=== PATIENT | male | born 1940 | race Caucasian/White ===

== ENCOUNTER 2017-06-04 21:52 | Observation (INO) | payer OTHER, BC ==
[2017-06-04] MEDS ORDERED: NS 1,000 ML IV ONE (21:58)
[2017-06-04] MEDS ORDERED: ASPIRIN 81 MG CHEWABLE TAB PO ONE (21:58)
--- NOTE | 2017-06-04 22:00 | EDPHY ---
H & P HPI/ROS: HPI CHIEF COMPLAINT: Chest pain HISTORY OF PRESENT ILLNESS: This patient very pleasant 76-year-old male he is from out of town he resides in [place] he is fluent to [place] today around noon. He ate at 4:00 p.m.. He presents emergency room for 30 minutes of chest discomfort. He describes it as substernal dull ache. Waxing and waning. Stuttering in symptoms. He states that it comes and goes very brief periods. No reflux symptoms. No shortness of breath or pleuritic pain. He endorses dry mouth and diaphoresis with this. Since arriving to the emergency room by EMS it is resolved. It started half an hour ago. Of note this patient does have significant cardiac disease history including 3 stents to his LAD 1 in his circumflex 9 years ago, additionally he has an AICD for V-tach. On Coumadin for AFib Past Medical History: Coronary artery disease, AFib, V-tach Past Surgical History: Left chest AICD Social History: Denies daily use drugs alcohol tobacco. Family History: Noncontributory ROS REVIEW OF SYSTEMS: A comprehensive 10 point review of systems is otherwise negative aside from elements mentioned in the history of present illness. Exam Constitutional appears well nontoxic, triage nursing summary reviewed, vital signs reviewed, awake/alert. Eyes normal conjunctivae and sclera, EOMI, PERRLA. HENT normal inspection, atraumatic, moist mucus membranes, no epistaxis, neck supple/ no meningismus, no raccoon eyes. Respiratory clear to auscultation bilaterally, normal breath sounds, no respiratory distress, no wheezing. Cardiovascular rate normal, regular rhythm, no murmur, no edema, distal pulses normal. Gastrointestinal soft, non-tender, no rebound, no guarding, normal bowel sounds, no distension, no pulsatile mass. Genitourinary no CVA tenderness. Musculoskeletal no midline vertebral tenderness, full range of motion, no calf swelling, no tenderness of extremities, no meningismus, good pulses, neurovascularly intact. Skin pink, warm, & dry, no rash, skin atraumatic. Neurologic awake, alert and oriented x 3, AAOx3, moves all 4 extremities equally, motor intact, sensory intact, CN II-XII intact, normal cerebellar, normal vision, normal speech. Psychiatric normal mood/affect. Heme/Lymph/Immune no lymphadenopathy. Differential diagnosis includes but is not limited to: ACS, atypical chest pain , pneumothorax, pneumonia, pulmonary embolism, aortic dissection, congestive heart failure, tumor, musculoskeletal pain, esophageal pain, GERD, peptic ulcer disease, pancreatitis Medical Decision Making: Plan for this patient full cardiac sonographer, IV establishment, obtain EKG, troponin, chest x-ray, electrolytes, blood work. Full-dose aspirin. He is chest pain-free at this time but if he develops chest pain will obtain another EKG as well as dose with nitroglycerin. Re-evaluation: EKG interpretation by me on record in [facility] system. Impression time of EKG 2157, this is sinus rhythm rate of 88, left axis deviation present. Q- waves present V1 V2 V3. No ST elevation. T-wave inversion lateral leads. ED x-ray chest reviewed. Cardiomegaly. No failure. 2310: The patient is chest pain-free. No acute distress. Comfortably. Troponin negative D-dimer negative. I have asked the hospitalist service to admit this patient for chest pain cardiac rule out. He is chest pain-free. His workup here in emergency room is been unremarkable. He agrees to stay. His risk factors include underlying coronary artery disease with multiple stents, VT cardiac arrest, AICD. Age. Dr. Jacobsen agrees to admit this patient. Source: Patient, EMS Constitutional: Initial Vital Signs Temperature (C) 36.4 C 06/04/17 21:52 Heart Rate 90 06/04/17 21:52 Respiratory Rate 15 06/04/17 21:52 Blood Pressure 148/89 H 06/04/17 21:52 O2 Sat (%) 95 06/04/17 21:52 O2 Delivery Mode Room Air Allergies/Adverse Reactions: No Known Allergies Allergy (Verified 06/04/17 21:59) Home Medications: Medication Instructions Recorded Amiodarone HCl 200 mg PO Q2D 06/04/17 Aspirin [Aspirin 81mg (*)] 81 mg PO DAILY 06/04/17 Atorvastatin Calcium [Lipitor 40 40 mg PO HS 06/04/17 mg (*)] Ezetimibe [Zetia 10 MG (*)] 10 mg PO DAILY 06/04/17 Levothyroxine [Synthroid 112 mcg 112 mcg PO DAILY06 06/04/17 (*)] Metoprolol Succinate Xr [Toprol Xl 25 mg PO DAILY 06/04/17 25 mg (*)] Nitroglycerin [Nitrostat 0.4 mg 0.4 mg SL Q5M PRN 06/04/17 (*)] Spironolactone [Aldactone 25 MG 25 mg PO DAILY 06/04/17 (*)] Warfarin Sodium [Coumadin 3MG (*)] 3 mg PO SUTUWETHSA@16 06/04/17 Multivitamins [Multivitamin (*)] 1 each PO DAILY 06/05/17 Pantoprazole Sodium [Protonix 40mg 40 mg PO DAILY #30 tab 06/05/17 (*)] Tamsulosin HCl [Flomax 0.4 MG (*)] 0.4 mg PO DAILY 06/05/17 Warfarin Sodium [Coumadin 2MG (*)] 2 mg PO MOFR@16 06/05/17 Medical Decision Making - Data Points Laboratory Results: Laboratory Results 06/04/17 21:58 06/04/17 21:58 Medications Given: Discontinued Medications Aspirin (Aspirin) 324 mg PO EDNOW ONE Stop: 06/04/17 21:59 Last Admin: 06/04/17 22:18 Dose: Not Given Ezetimibe (Zetia) 10 mg PO DAILY KATERIN Stop: 12/02/17 09:14 Last Admin: 06/05/17 09:56 Dose: 10 mg Sodium Chloride (Ns) 1,000 mls @ 0 mls/hr IV EDNOW ONE; Wide Open PRN Reason: Protocol Stop: 06/04/17 21:59 Last Admin: 06/04/17 22:26 Dose: 1,000 mls Sodium Chloride (Ns) 1,000 mls @ 75 mls/hr IV CONT KATERIN Stop: 06/05/17 06:14 Last Admin: 06/05/17 01:44 Dose: 1,000 mls Levothyroxine Sodium (Synthroid) 112 mcg PO DAILY06 KATERIN Stop: 12/02/17 09:14 Last Admin: 06/05/17 09:56 Dose: 112 mcg Metoprolol Succinate (Toprol Xl) 25 mg PO DAILY KATERIN Stop: 12/02/17 09:14 Last Admin: 06/05/17 09:56 Dose: 25 mg Pantoprazole Sodium (Protonix) 40 mg PO ONCE ONE Stop: 06/05/17 09:29 Last Admin: 06/05/17 09:56 Dose: 40 mg Spironolactone (Aldactone) 25 mg PO DAILY [facility] Stop: 12/02/17 09:14 Last Admin: 06/05/17 09:57 Dose: 25 mg Tamsulosin HCl (Flomax) 0.4 mg PO DAILY [facility] Stop: 12/02/17 09:14 Last Admin: 06/05/17 09:57 Dose: 0.4 mg Departure - Departure Disposition: [facility] Inpatient Acute Clinical Impression: Chest pain Qualifiers: Chest pain type: unspecified Qualified Code(s): R07.9 - Chest pain, unspecified Condition: Fair
--- NOTE | 2017-06-04 22:01 | CPEKG ---
Heart Rate: 88 RR Interval: 682 P-R Interval: 168 QRSD Interval: 88 QT Interval: 392 QTC Interval: 475 P [place]: 33 QRS [place]: -31 T Wave [place]: 102 EKG Severity - ABNORMAL ECG - EKG Impression: SINUS RHYTHM EKG Impression: LEFT AXIS DEVIATION EKG Impression: CONSIDER ANTEROSEPTAL INFARCT Electronically Signed By: Juan David Foster 05-Jun-2017 06:45:14
[2017-06-04 22:17] LABS: % IMMATURE GRANULYOCYTES 0.2 % (0.0-1.1); ABSOLUTE IMMATURE GRANULOCYTES 0.02 10^3/uL (0.00-0.10); ADD DIFF? NO; ADD MORPH? NO; ADD SCAN? NO; ATYPICAL LYMPHOCYTE FLAG 10 (0-99); FRAGMENT RBC FLAG 0 (0-99); HEMATOCRIT 34.6 % (40.0-51.0); HEMOGLOBIN 11.9 g/dL (13.7-17.5); LEFT SHIFT FLG 0 (0-99); LIPEMIA HEMOLYSIS FLAG 90 (0-99); MEAN CELL HEMOGLOBIN 33.4 pg (27.9-34.1); MEAN CELL HEMOGLOBIN CONCENTR. 34.4 g/dL (32.4-36.7); MEAN CELL VOLUME 97.2 fL (81.5-99.8); MEAN PLATELET VOLUME 10.5 fL (8.7-11.7); PLATELET CLUMPS FLAG 0 (0-99); PLATELET COUNT 198 10^3/uL (150-400); RED BLOOD CELL COUNT 3.56 10^6/uL (4.40-6.38)
[2017-06-04 22:27] LABS: ALANINE AMINOTRANSFERASE 37 IU/L (21-72); ALBUMIN 3.9 g/dL (3.5-5.0); ALKALINE PHOSPHATASE 77 IU/L (38-126); ANION GAP 10 mEq/L (8-16); APTT 34.2 SEC (23.0-38.0); ASPARTATE AMINOTRANSFERASE 31 IU/L (17-59); BILIRUBIN,TOTAL 0.9 mg/dL (0.1-1.4); BILIRUBIN-CONJUGATED 0.2 mg/dL (0.0-0.5); BILIRUBIN-UNCONJUGATED 0.7 mg/dL (0.0-1.1); CALCIUM 9.6 mg/dL (8.5-10.4); CARBON DIOXIDE 23 mEq/l (22-31); CHLORIDE 104 mEq/L (97-110); CREATININE 1.6 mg/dL (0.7-1.3); GLOMERULAR FILTRATION RATE 42; GLUCOSE 101 mg/dL (70-100); INR 2.23 (0.83-1.16); MAGNESIUM 1.9 mg/dL (1.6-2.3); POTASSIUM 4.1 mEq/L (3.5-5.2); PROTIME(PATIENT) 24.9 SEC (12.0-15.0); SODIUM 137 mEq/L (134-144); TOTAL PROTEIN 6.8 g/dL (6.3-8.2)
[2017-06-04 22:39] LABS: CREATINE KINASE-MB FRACTION 1.64 ng/mL (0.00-3.19); TROPONIN I < 0.012 ng/mL (0.000-0.034)
[2017-06-05] MEDS ORDERED: ACETAMINOPHEN 325 MG TAB PO PRN (01:03)
[2017-06-05] MEDS ORDERED: ONDANSETRON DISINTEGRATING 4 MG TAB PO PRN (01:03)
[2017-06-05] MEDS ORDERED: ONDANSETRON 4 MG/2 ML VIAL IVP PRN (01:03)
[2017-06-05] MEDS ORDERED: NS 1,000 ML IV SCH (01:15)
[2017-06-05 01:19] VITALS: RESP 16; TEMP 98.1
[2017-06-05] MEDS ORDERED: CALCIUM CARBONATE 500 MG CHEWABLE TAB PO PRN (02:00)
--- NOTE | 2017-06-05 03:14 | GHP ---
[f rep st] HISTORY AND PHYSICAL DATE OF ADMISSION: 06/05/2017 CHIEF COMPLAINT: Chest discomfort. HISTORY OF PRESENT ILLNESS: A 76-year-old male visiting from [place] with his , with a history of coronary disease status post stents, VFib, hypertension , presenting with chest discomfort. They flew in today from [place] to visit his son. They had an early dinner at 4, in which he had 1 beer. He was in bed this evening and developed a substernal, dull spasm that occurred every 15 seconds. He a fullness in his abdomen and the need to belch. He has a history of GERD and used to be on acid blockers, but no longer. These episodes have resolved by the time of my interview. He denies any associated radiation numbness, tingling, nausea, vomiting, or shortness of breath. He walks daily 30 minutes without chest pain or shortness of breath. 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 He had a treadmill stress test within the year, that was normal. He said his EF is 35% to 40%. No fevers, chills, or sweats. No nausea, vomiting, or diarrhea. REVIEW OF SYSTEMS: I completed a 10-point review of systems, negative except as noted in HPI. PAST MEDICAL HISTORY: 1. Coronary artery disease, 2 stents to LAD, 1 to the circumflex in 2007, history of ventricular fibrillation status post AICD. 2. VT. 3. Hypertension. 4. Hyperlipidemia. 5. Systolic heart failure with an EF of 35% to 40%, per his report. 6. Atrial fibrillation. PAST SURGICAL HISTORY: None. FAMILY HISTORY: Mother and father with CHF. HOME MEDICATIONS: Zetia, Synthroid, spironolactone, PPI, nitroglycerin, metoprolol, Coumadin, atorvastatin, aspirin, amiodarone. SOCIAL HISTORY: Has a drink with dinner. No tobacco. Smoked for a total of 4 years. No drugs. Here visiting son. ALLERGIES: No known drug allergies. PHYSICAL EXAMINATION: VITAL SIGNS: Temperature 36.7, blood pressure 147/90, heart rate 70s, respirations 16, 96% on room air. GENERAL: Well-appearing male , sitting up in bed, no acute distress. HEENT: PERRLA. EOMI. Oropharynx clear. CV: Regular rate and rhythm. No murmurs, gallops, rubs. No reproducible midsternal chest pain. No lower extremity edema. LUNGS: Clear. GI: Soft, nontender, nondistended. : No suprapubic tenderness. MUSCULOSKELETAL: 5/5 upper and lower extremity strength. NEUROLOGIC: 2 through 12 intact. PSYCHIATRIC: Alert and oriented x3. Very pleasant. LABORATORY DATA: WBC 9, hemoglobin 11, hematocrit 34, platelets 198. INR is 2.2, PT is 24. D-dimer 0.3. Sodium 137, potassium 4.1, chloride 104, anion gap 10, creatinine is 1.6, unclear baseline. BNP is 584. Lipase 134. LFTs within normal. EKG, personally reviewed by me: Anterior Q waves, inferior Q waves. Chest x-ray, personally reviewed by me: Cardiac enlargement. No overt pulmonary edema. ASSESSMENT AND PLAN: 1. Chest discomfort: Differential includes gastroesophageal reflux disease, acute coronary syndrome versus, pulmonary embolism, musculoskeletal. D-dimer negative. Initial troponin and EKG negative for acute ischemia. There are inferior, anterior Q waves. Patient is pain-free at this time. Will monitor on telemetry and repeat troponin EKG. He is followed closely by a underground supervisor in [place]. Per his report, had a normal stress test within 1 year. He also states having an echocardiogram the past month that has been stable from prior. If patient's troponin and EKG negative, it is reasonable to follow up with his underground supervisor when he returns home. 2. Acute kidney injury. Creatinine 1.6. Unclear baseline. Will gently hydrate with history of heart failure. 3. Coronary artery disease, status post stents. 4. Hyperlipidemia. Statin. 5. Coronary artery disease. Continue aspirin, statin, beta jg. 6. Compensated heart failure. Continue beta jg, diuretics. 7. INR is at goal. Continue amiodarone and beta jg. 8. Diet: Cardiac. 9. Deep vein thrombosis prophylaxis. On Coumadin. DISPOSITION: Patient warrants observation admission given acute chest pressure concerning for possible ACS, requiring telemetry and serial troponins. /[id number]/MODL MTDD
[2017-06-05 04:28] VITALS: O2SAT 95
[2017-06-05 04:42] LABS: ANION GAP 10 mEq/L (8-16); CALCIUM 8.6 mg/dL (8.5-10.4); CARBON DIOXIDE 21 mEq/l (22-31); CHLORIDE 109 mEq/L (97-110); CREATININE 1.4 mg/dL (0.7-1.3); GLOMERULAR FILTRATION RATE 49; GLUCOSE 92 mg/dL (70-100); POTASSIUM 4.3 mEq/L (3.5-5.2); SODIUM 140 mEq/L (134-144)
[2017-06-05 04:45] LABS: INR 2.48 (0.83-1.16); PROTIME(PATIENT) 27.1 SEC (12.0-15.0)
[2017-06-05 05:26] LABS: TROPONIN I < 0.012 ng/mL (0.000-0.034)
[2017-06-05] MEDS ORDERED: ENOXAPARIN 40 MG/0.4 ML SYR SC SCH (09:00)
[2017-06-05] MEDS ORDERED: EZETIMIBE 10 MG TAB PO SCH (09:15)
[2017-06-05] MEDS ORDERED: METOPROLOL SUCCINATE XR 25 MG TAB PO SCH (09:15)
[2017-06-05] MEDS ORDERED: SPIRONOLACTONE 25 MG TAB PO SCH (09:15)
[2017-06-05] MEDS ORDERED: LEVOTHYROXINE 112 MCG TAB PO SCH (09:15)
[2017-06-05] MEDS ORDERED: TAMSULOSIN HCL 0.4 MG CAP PO SCH (09:15)
[2017-06-05] MEDS ORDERED: PANTOPRAZOLE SODIUM 40 MG TAB PO ONE (09:28)
[2017-06-05 09:57] VITALS: BP 114/78; PULSE 79
--- NOTE | 2017-06-05 10:54 | ASDISCHSUM ---
Discharge Information Plan Status:Home with No Needs Medically Cleared to Leave:06/05/2017 Discharge Date:06/05/2017 10:50 AM CM D/C Disposition:Home, Routine, Self-Care ADT D/C Disposition:Home, Routine, Self-Care Projected Discharge Date:06/05/2017 12:00 AM Transportation at D/C: Discharge Delay Reason: Follow-Up Date:06/05/2017 12:00 AM Discharge Slot: Final Diagnosis: Placement Information Patient Contact Information Contact Name:UNA Relationship: Address:[address] [place] [address] Work Phone: City:[place] Alternate Phone: State/Zip Code:[place] [address] Email: Financial Information Financial Class:[facility] Primary Plan Desc:MEDICARE INPATIENT Primary Plan Number:[id number] Secondary Plan Desc:[facility] OUT OF [facility] Secondary Plan Number:[id number] Assessment Information Intervention Information
[2017-06-05] MEDS ORDERED: WARFARIN SODIUM 3 MG TAB PO SCH (16:00)
--- NOTE | 2017-06-05 20:01 | GDS ---
[f rep st] DISCHARGE SUMMARY DISCHARGE DIAGNOSES: 1. Chest pain, suspect due to gastroesophageal reflux disease. 2. Coronary artery disease, status post previous stents. 3. Chronic systolic congestive heart failure, ejection fraction 35%. 4. Ventricular fibrillation status post automatic implantable cardiac defibrillator. 5. Atrial fibrillation. 6. Hypertension. HISTORY: The patient is a 76-year-old male visiting from [place]. He has an extensive coronary art zahra disease history, including previous stents, V-fib, and an AICD. He presented to the hospital wit h a substernal spasm associated with a fullness in his abdomen and a need to belch. He does have a h istory of GERD and had previously been on a proton pump inhibitor but that had been discontinued for quite some time. 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 His D-dimer is negative, and he is chronically on warfarin with a therapeutic INR of 2.48 on presentation. He was admitted to the hospital and obtained serial troponins and EKGs that were unremarkable. As th e hospitalization progressed, he felt very strongly that the spasms were due to his esophagus and con sistent with previous GERD. 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 He is definitely not having an a cute [place]. He had recurrence of chest pain/spasm shortly after eating breakfast. We discussed re-init iating a proton pump inhibitor, with which he is agreeable. Perhaps it dietary change while on vacat ion that has brought on recurrence of his GERD. I recommended a 2-week course of Protonix, at which time, it can be discontinued to see whether not return to his usual home regimen can assist him in we aning off the proton pump inhibitor again. He will follow up closely with his bottle house [employer] supervisor upon retu rn back to [place]. DISCHARGE MEDICATIONS: Please see computer record for full detailed list. New medication: Protonix 40 mg p.o. daily for 14 days. DISCHARGE INSTRUCTIONS: Follow up with Cardiology upon returning home to [place]. Patient was seen and examined by me on the day of discharge. /[id number]/MODL
[2017-06-05] MEDS ORDERED: ATORVASTATIN CALCIUM 40 MG TAB PO SCH (21:00)
[2017-06-06] MEDS ORDERED: ASPIRIN 81 MG CHEWABLE TAB PO SCH (09:00)
[2017-06-06] MEDS ORDERED: AMIODARONE HCL 200 MG TAB PO SCH (09:00)
[2017-06-06] MEDS ORDERED: WARFARIN SODIUM 2 MG TAB PO SCH (16:00)
== END 2017-06-05 10:50 | disposition home or self-care (01) ==
LOC: INTOOBSV 23:11 → F2W 06-05 00:54
PROVIDERS: ADMIT Internal Medicine; ATTEND Internal Medicine
DX: R07.9 Chest pain, unspecified (principal); K21.9 Gastro-esophageal reflux disease without esophagitis; I25.10 Atherosclerotic heart disease of native coronary artery without angina pectoris; I50.22 Chronic systolic (congestive) heart failure; I49.01 Ventricular fibrillation; I48.91 Unspecified atrial fibrillation; N17.9 Acute kidney failure, unspecified; I11.0 Hypertensive heart disease with heart failure; Z79.01 Long term (current) use of anticoagulants; Z95.810 Presence of automatic (implantable) cardiac defibrillator; Z95.5 Presence of coronary angioplasty implant and graft
CPT/HCPCS: 71010; 93005; G0378